=== PATIENT | female | born 1930 | race Caucasian/White ===

== ENCOUNTER 2016-09-04 05:34 | Inpatient (IN) | payer MEDICARE ==
[2016-09-04] MEDS ORDERED: Sodium Chloride 0.9% 1000 ML 1,000 ML IV STA ×2 (05:57→05:58)
[2016-09-04] MEDS ORDERED: ROCEPHIN 1 Gm-D5w 50 ml Bag** 1 G/50 ML IVPB IV STA (05:57)
--- NOTE | 2016-09-04 06:06 | ERPHSYRPT ---
- History of Present Illness Time Seen by Provider: 09/04/16 05:59 Source: patient, other (N.N.) Exam Limitations: clinical condition Physician History: THIS AM PT WAS FOUND TO BE HYPOTENSIVE AND HAVE A 101.5 DEGREE FEVER. PT DENIES CHEST PAIN, ABDOMINAL PAIN, SORE THROAT. Allergies/Adverse Reactions: No Known Drug Allergies Allergy (Unverified 05/11/16 11:49) Hx Tetanus, Diphtheria Vaccination/Date Given: No Hx Influenza Vaccination/Date Given: No Hx Pneumococcal Vaccination/Date Given: No - Review of Systems Constitutional: Fever, Other (HYPOTENSIVE) Cardiac: No Chest Pain Abdominal/Gastrointestinal: No Abdominal Pain Neurological: No Headache All Other Systems: Reviewed and Negative - Past Medical History Pertinent Past Medical History: Yes Neurological History: Stroke ENT History: Cataracts Cardiac History: No Pertinent History Respiratory History: No Pertinent History Endocrine Medical History: No Pertinent History Musculoskeletal History: No Pertinent History GI Medical History: No Pertinent History History: No Pertinent History Psycho-Social History: No Pertinent History Female Reproductive Disorders: No Pertinent History - Past Surgical History Past Surgical History: Yes Gastrointestinal: No Pertinent History Female Surgical History: Hysterectomy Other Surgical History: cataract removal - Social History Smoking Status: Former smoker Exposure to second hand smoke: No Drug Use: none Patient Lives Alone: Yes - Nursing Vital Signs Nursing Vital Signs: Initial Vital Signs Temperature 98.9 F Temperature Source Rectal Pulse Rate 88 Respiratory Rate 16 Blood Pressure [Left Arm] 109/70 Pain Intensity 0 - Physical Exam General Appearance: alert Eye Exam: PERRL/EOMI Ears, Nose, Throat Exam: TMs normal, dry mucous membranes Neck Exam: normal inspection Respiratory Exam: lungs clear Cardiovascular Exam: normal heart sounds Gastrointestinal/Abdomen Exam: soft, normal bowel sounds, No tenderness Back Exam: normal inspection Extremity Exam: other (RIGHT SIDED PARALYSIS(ONGOING).) Neurologic Exam: alert Skin Exam: warm, dry SpO2 Interpretation: normal SpO2: 95 Oxygen Delivery: Nasal Cannula (4L) - Course Nursing assessment & vital signs reviewed: Yes EKG Interpreted by Me: RATE (80), Sinus Rhythm, NORMAL AXIS, Other (UNIFOCAL PVC 'S) - Radiology Exams Chest X-ray Interpretation: Interpreted by me, No Pneumonia Ordered Tests: Active Orders 24 hr Category Date Time Status Office Support STAT Care 09/04/16 05:55 Active Catheter-[place] STAT Care 09/04/16 05:55 Active EKG-ER Only STAT Care 09/04/16 05:58 Active Oxygen-ED Only NASAL CANNULA 2 lpm Care 09/04/16 06:29 Active Pulse Oximetry (ED) STAT Care 09/04/16 05:55 Active Saline Lock STAT Care 09/04/16 05:55 Active CHEST 1 VIEW (PORTABLE) Stat Exams 09/04/16 05:56 Completed AMYLASE Stat Lab 09/04/16 05:40 Completed BLOOD CULTURE Stat Lab 09/04/16 06:10 Received CBC W DIFF Stat Lab 09/04/16 05:40 Completed CMP Stat Lab 09/04/16 05:40 Completed CULTURE,URINE Stat Lab 09/04/16 06:00 Received LIPASE Stat Lab 09/04/16 05:40 Completed Lactic Acid Stat Lab 09/04/16 05:55 Completed PROTIME WITH INR Stat Lab 09/04/16 05:40 Completed PTT Stat Lab 09/04/16 05:40 Completed TROPONIN Stat Lab 09/04/16 05:40 Completed UA W/ MICROSCOPIC Stat Lab 09/04/16 05:55 Completed Medication Summary Generic Name Dose Route Start Last Admin Trade Name Freq PRN Reason Stop Dose Admin Sodium Chloride 1,000 mls @ 100 mls/hr 09/04/16 07:15 Sodium Chloride 0.9% 1000 Ml IV 10/04/16 07:14 .Q10H [place] Discontinued Medications Generic Name Dose Route Start Last Admin Trade Name Freq PRN Reason Stop Dose Admin Ceftriaxone Sodium/Dextrose 1 g in 50 mls @ 100 mls/hr 09/04/16 05:57 06:20 Rocephin 1 Gm-D5w 50 Ml Bag IV 09/04/16 06:26 100 mls/hr STAT STA Administration Sodium Chloride 1,000 mls @ 999 mls/hr 09/04/16 05:57 09/04/16 06:20 Sodium Chloride 0.9% 1000 Ml IV 09/04/16 06:57 999 mls/hr .Q1H1M STA Administration Sodium Chloride 1,000 mls @ 999 mls/hr 09/04/16 05:58 09/04/16 07:13 Sodium Chloride 0.9% 1000 Ml IV 09/04/16 06:58 Not Given .Q1H1M STA Sodium Chloride Confirm 09/04/16 06:17 Sodium Chloride 0.9% 1000 Ml Administered 09/04/16 06:18 Dose 1,000 mls @ ud .ROUTE .STK-MED ONE Ceftriaxone Sodium/Dextrose Confirm 09/04/16 06:17 Rocephin 1 Gm-D5w 50 Ml Bag Administered 09/04/16 06:18 Dose 1 g in 50 mls @ ud IV .STK-MED ONE Ondansetron HCl 4 mg 09/04/16 06:25 09/04/16 06:26 Zofran 4 Mg/2 Ml Vial IV 09/04/16 06:26 4 mg STAT ONE Administration Ondansetron HCl Confirm 09/04/16 06:25 Zofran 4 Mg/2 Ml Vial Administered 09/04/16 06:26 Dose 4 mg .ROUTE .STK-MED ONE Lab/Rad Data: Laboratory Result Diagrams 09/04/16 05:40 09/04/16 05:40 Laboratory Results 09/04/16 09/04/16 09/04/16 Range/Units 05:55 05:55 05:40 WBC (4.0-10.5) K/mm3 RBC (4.1-5.4) M/mm3 Hgb (12.0-16.0) gm/dl Hct (35-47) % MCV (78-100) fl MCH (26-32) pg MCHC (32-36) g/dl RDW (11.5-14.0) % Plt Count (150-450) K/mm3 MPV (6-9.5) fl Gran % (36.0-66.0) % Lymphocytes % (24.0-44.0) % Monocytes % (0.0-12.0) % Eosinophils % (0.00-5.0) % Basophils % (0.0-0.4) % Basophils # (0-0.4) INR (0.8-3.0) APTT (25.3-37.0) SECONDS Sodium (136-145) mEq/L Potassium (3.5-5.1) mEq/L Chloride (98-107) mEq/L Carbon Dioxide (21-32) mEq/L Anion Gap (5-15) MEQ/L BUN (9-20) mg/dL Creatinine (0.55-1.30) mg/dl Estimated GFR ML/MIN Glucose (70-110) MG/DL Lactic Acid 1.4 (0.4-2.0) Calcium (8.5-10.1) mg/dL Total Bilirubin (0.2-1.0) mg/dL AST (15-37) U/L ALT (12-78) U/L Alkaline Phosphatase (46-116) U/L Troponin I 0.673 H* (0.000-0.056) ng/ml Serum Total Protein (6.4-8.2) gm/dL Albumin (3.4-5.0) g/dL Amylase 69 (25-115) U/L Lipase 74 (73-393) U/L Ur Collection Type CATH Urine Color YELLOW (YELLOW) Urine Appearance CLOUDY (CLEAR) Urine pH 5.0 (5-6) Ur Specific [place] 1.010 (1.005-1.025) Urine Protein 30 (Negative) Urine Glucose (UA) NEGATIVE (NEGATIVE) mg/dL Urine Ketones NEGATIVE (NEGATIVE) Urine Nitrite NEGATIVE (NEGATIVE) Urine Bilirubin NEGATIVE (NEGATIVE) Urine Urobilinogen 0.2 (0-1) mg/dL Urine WBC (Auto) LARGE (NEGATIVE) Urine RBC (Auto) MODERATE (0-5) Steve/ul Urine Microscopic RBC 15-25 (0-2) /HPF Urine Microscopic WBC >100 (0-5) /HPF Ur Epithelial Cells FEW (FEW) /HPF Urine Bacteria PACKED (NEGATIVE) /HPF Specimen Received 09/04/2016 0610 09/04/16 09/04/16 09/04/16 Range/Units 05:40 05:40 05:40 WBC 12.4 H (4.0-10.5) K/mm3 RBC 4.12 (4.1-5.4) M/mm3 Hgb 12.2 (12.0-16.0) gm/dl Hct 37.5 (35-47) % MCV 91.0 (78-100) fl MCH 29.6 (26-32) pg MCHC 32.5 (32-36) g/dl RDW 13.6 (11.5-14.0) % Plt Count 182 (150-450) K/mm3 MPV 12.1 H (6-9.5) fl Gran % 80.0 H (36.0-66.0) % Lymphocytes % 13.7 L (24.0-44.0) % Monocytes % 6.1 (0.0-12.0) % Eosinophils % 0.1 (0.00-5.0) % Basophils % 0.1 (0.0-0.4) % Basophils # 0.01 (0-0.4) INR 1.25 (0.8-3.0) APTT 34.2 (25.3-37.0) SECONDS Sodium 138 (136-145) mEq/L Potassium 4.1 (3.5-5.1) mEq/L Chloride 101 (98-107) mEq/L Carbon Dioxide 29.8 (21-32) mEq/L Anion Gap 10.9 (5-15) MEQ/L BUN 19 (9-20) mg/dL Creatinine 1.00 (0.55-1.30) mg/dl Estimated GFR 56 ML/MIN Glucose 113 H (70-110) MG/DL Lactic Acid (0.4-2.0) Calcium 8.5 (8.5-10.1) mg/dL Total Bilirubin 0.60 (0.2-1.0) mg/dL AST 29 (15-37) U/L ALT 22 (12-78) U/L Alkaline Phosphatase 73 (46-116) U/L Troponin I (0.000-0.056) ng/ml Serum Total Protein 6.9 (6.4-8.2) gm/dL Albumin 3.0 L (3.4-5.0) g/dL Amylase (25-115) U/L Lipase (73-393) U/L Ur Collection Type Urine Color (YELLOW) Urine Appearance (CLEAR) Urine pH (5-6) Ur Specific [place] (1.005-1.025) Urine Protein (Negative) Urine Glucose (UA) (NEGATIVE) mg/dL Urine Ketones (NEGATIVE) Urine Nitrite (NEGATIVE) Urine Bilirubin (NEGATIVE) Urine Urobilinogen (0-1) mg/dL Urine WBC (Auto) (NEGATIVE) Urine RBC (Auto) (0-5) Steve/ul Urine Microscopic RBC (0-2) /HPF Urine Microscopic WBC (0-5) /HPF Ur Epithelial Cells (FEW) /HPF Urine Bacteria (NEGATIVE) /HPF Specimen Received - Progress Discussed with : Anna (ADMIT - [id number]) - Departure Time of Disposition: 07:17 Departure Disposition: Observation Clinical Impression: UTI, ELEVATED TROPONIN, DEHYDRATION, HX CVA WITH RIGHT SIDED PARALYSIS Condition: Stable Critical Care Time: No Referrals: SOPHIE ARRIAGA MD [Primary Care Provider] -
[2016-09-04 06:08] LABS: INR 1.25 (0.8-3.0); PROTIME 14.1 SECONDS (9.95-12.35)
[2016-09-04 06:09] LABS: BASOPHIL % 0.1 % (0.0-0.4); Eosinophil % 0.1 % (0.00-5.0); Lymphocytes % 13.7 % (24.0-44.0); Mean Corpuscular Hemoglobin 29.6 pg (26-32); Mean Platelet Volume 12.1 fl (6-9.5); Monocytes % 6.1 % (0.0-12.0); Platelet Count 182 K/mm3 (150-450); Red Blood Count 4.12 M/mm3 (4.1-5.4); Red Cell Distribution Width 13.6 % (11.5-14.0); White Blood Count 12.4 K/mm3 (4.0-10.5)
[2016-09-04 06:11] LABS: PTT 34.2 SECONDS (25.3-37.0)
[2016-09-04 06:15] LABS: ANION GAP 10.9 MEQ/L (5-15); BILIRUBIN,TOTAL 0.6 mg/dL (0.2-1.0); Carbon Dioxide 29.8 mEq/L (21-32); Potassium 4.1 mEq/L (3.5-5.1); Total Protein 6.9 gm/dL (6.4-8.2)
[2016-09-04] MEDS ORDERED: ROCEPHIN 1 Gm-D5w 50 ml Bag** 1 G/50 ML IVPB IV ONE (06:17)
[2016-09-04] MEDS ORDERED: Sodium Chloride 0.9% 1000 ML 1,000 ML ONE (06:17)
[2016-09-04] MEDS ORDERED: Zofran 4 MG/2 ML VIAL ONE (06:25)
[2016-09-04] MEDS ORDERED: Zofran 4 MG/2 ML VIAL IV ONE (06:25)
[2016-09-04 06:26] LABS: Collection Type CATH
[2016-09-04 06:27] LABS: COMPLETE URINE MICROSCOPIC? YES
[2016-09-04 06:28] LABS: Bacteria PACKED /HPF (NEGATIVE); Epithelial Cells FEW /HPF (FEW); WBC >100 /HPF (0-5)
[2016-09-04 06:32] LABS: TROPONIN 0.673 ng/ml (0.000-0.056)
[2016-09-04] MEDS ORDERED: Sodium Chloride 0.9% 1000 ML 1,000 ML IV SCH (07:15)
--- NOTE | 2016-09-04 07:15 | XRAY ---
Indication: Possible sepsis. Comparison: May 11, 2016. Portable chest remains clear. Heart and mediastinal structures stable and within normal limits. Bony thorax intact again with mild osteopenia, degenerative changes, and mild scoliosis. Impression: Stable nonacute chest with chronic features.
[2016-09-04] MEDS ORDERED: Zofran 4 MG/2 ML VIAL IV PRN (07:52)
[2016-09-04] MEDS ORDERED: DILAUDID 2 MG INJECTION IV PRN (07:52)
[2016-09-04] MEDS ORDERED: TYLENOL 325 MG PO PRN ×2 (07:52→09:13)
--- NOTE | 2016-09-04 08:54 | PCM.HP ---
History of Present Illness - Chief Complaint Chief Complaint: UTI with Sepsis Date: 09/04/16 History of Present Illness: is a 86 year old female. she has been feeling weak and tired for the last 2 days started having fever yesterday and then abdominal and flank pain. limited history somewhat by her aphasia but she can answer yes no questions accurately. She continues to not have chest pain and not feel short of breath. no vomiting. - Review of Systems Constitutional: Fever, Chills, Fatigue Eyes: No Symptoms Ears, Nose, & Throat: No Symptoms Respiratory: No Cough, No Short Of Breath Cardiac: No Chest Pain, No Edema, No Syncope Abdominal/Gastrointestinal: Nausea, No Abdominal Pain, No Vomiting, No Diarrhea Genitourinary Symptoms: No Dysuria Musculoskeletal: Back Pain, No Neck Pain Skin: No Rash Neurological: No Dizziness, No Focal Weakness, No Sensory Changes Psychological: No Symptoms Endocrine: No Symptoms Hematologic/Lymphatic: No Symptoms Immunological/Allergic: No Symptoms Medications & Allergies Home Medications: Home Medication List Acetaminophen 325 mg [Tylenol 325 mg] 650 mg PO Q4H PRN 09/04/16 [History Confirmed 09/04/16] Aspirin 81 mg PO DAILY 09/04/16 [History Confirmed 09/04/16] Hydrocodone Bit/Acetaminophen [[place] 5-325 Tablet] 1 each PO Q4H PRN 09/04/16 [ History Confirmed 09/04/16] Magnesium Hydroxide 30 ml [Milk of Magnesia 30 ml] 30 ml PO DAILY PRN 02/10 [History Confirmed 09/04/16] Metformin HCl 500 mg [Glucophage 500 MG] 500 mg PO DAILY 09/04/16 [ History Confirmed 09/04/16] Potassium Chloride 10 Meq Tab* [Klor Con 10 MEQ] 10 meq PO DAILY 09/04/16 [ History Confirmed 09/04/16] Allergies/Adverse Reactions: Allergies Allergy/AdvReac Type Severity Reaction Status Date / Time No Known Drug Allergies Allergy Unverified 05/11/16 11:49 - Past Medical History Past Medical History: Yes Neurological History: Stroke ENT History: Cataracts Cardiac History: No Pertinent History Respiratory History: No Pertinent History Endocrine Medical History: No Pertinent History Musculoskelatal History: No Pertinent History GI Medical History: No Pertinent History History: No Pertinent History Pyscho-Social History: No Pertinent History Reproductive Disorders: No Pertinent History Comment: 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 - Female History Hx Last Menstrual Period: na Are you now?: No - Past Surgical History Past Surgical History: Yes GI Surgical History: No Pertinent History Female Surgical History: Hysterectomy Other Surgical History: cataract removal - Social History Smoking Status: Former smoker Exposure to second hand smoke: No Alcohol: None Drug Use: none - Physical Exam Vital Signs: Vital Signs - 24 hr Temp Pulse Resp BP Pulse Ox 09/04/16 08:00 98 F 89 18 104/51 90 L 09/04/16 07:52 98 F 89 18 104/51 90 L 09/04/16 07:17 95 09/04/16 06:53 88 16 109/70 100 09/04/16 06:34 68 16 88/58 99 09/04/16 06:26 98 09/04/16 06:14 77 22 86/41 95 09/04/16 05:55 98.9 F 70 16 90/50 Oxygen-Last 24 hours O2 Percentage 1 Liter = 24% O2 Percentage 1 Liter = 24% O2 Percentage 2 Liters = 28% O2 Percentage 2 Liters = 28% O2 Percentage 2 Liters = 28% O2 Percentage 4 Liters = 36% General Appearance: no apparent distress, alert Neurologic Exam: alert, oriented x 3, cooperative, normal mood/affect, nml cerebellar function, motor deficits (right hemiparesis and chronic expressive aphasia) Eye Exam: PERRL/EOMI, eyes nml inspection Ears, Nose, Throat Exam: normal ENT inspection, TMs normal, pharynx normal, moist mucous membranes Neck Exam: normal inspection, non-tender, supple, full range of motion Respiratory Exam: normal breath sounds, lungs clear, No respiratory distress Cardiovascular Exam: regular rate/rhythm, normal heart sounds, normal peripheral pulses Gastrointestinal/Abdomen Exam: soft, normal bowel sounds, tenderness (suprapubic ), No mass Back Exam: normal inspection, normal range of motion, CVA tenderness (left), No vertebral tenderness Extremity Exam: normal inspection, normal range of motion, pelvis stable Skin Exam: normal color, warm, dry, No rash Lymphatic Exam: No adenopathy Assessment/Plan (1) Pyelonephritis, acute Current Visit: Yes Status: Acute Assessment & Plan: on ceftriaxone monitor cultures dvt ppx with lovenox Code(s): N10 - ACUTE PYELONEPHRITIS (2) Non-ST elevation myocardial infarction (NSTEMI), type 2 Current Visit: Yes Status: Acute Assessment & Plan: suspect demand supply mismatch with the profound hypotension at [facility] with bp systolic in upper 60's prior to transfer. no chest pain now and ekg unremarkable continue telemetry aspirin and trend troponin. Code(s): I21.4 - NON-ST ELEVATION (NSTEMI) MYOCARDIAL INFARCTION (3) Acute hypoxemic respiratory failure Current Visit: Yes Status: Acute Assessment & Plan: improving with supplementation suspect secondary to sepsis from UTI continue supportive measures Code(s): J96.01 - ACUTE RESPIRATORY FAILURE WITH HYPOXIA (4) Sepsis Current Visit: Yes Status: Acute (5) Right hemiparesis Current Visit: Yes Status: Chronic Code(s): G81.91 - HEMIPLEGIA, UNSPECIFIED AFFECTING RIGHT DOMINANT SIDE (6) Aphasia Current Visit: Yes Status: Chronic Assessment & Plan: expressive Code(s): R47.01 - APHASIA
[2016-09-04] MEDS ORDERED: BABY ASPIRIN 81 MG CHEW PO ONE (09:00)
[2016-09-04] MEDS ORDERED: LIPITOR 40MG PO STA (09:01)
[2016-09-04] MEDS ORDERED: NORCO 5/325 MG PO PRN (09:13)
[2016-09-04] MEDS ORDERED: MILK OF MAGNESIA 30 ML PO PRN (09:13)
[2016-09-04] MEDS: Klor Con 10 MEQ PO SCH (09:50)
[2016-09-04] MEDS: ENOXAPARIN SODIUM SQ SCH (09:51)
[2016-09-04] MEDS ORDERED: NON-FORMULARY ITEM (Aspirin [Aspirin] 81 MG) PO SCH (10:00)
[2016-09-04] MEDS ORDERED: Sodium Chloride 0.9% 500 ML 500 ML IV ONE (11:32)
[2016-09-04] MEDS: Sodium Chloride 0.9% 1000 ML 1,000 ML IV SCH (18:55)
[2016-09-05] MEDS: Sodium Chloride 0.9% 1000 ML 1,000 ML IV SCH ×2 (05:14→15:21)
[2016-09-05 06:09] LABS: BASOPHIL % 0.1 % (0.0-0.4); Eosinophil % 0.8 % (0.00-5.0); Granulocytes % 61.7 % (36.0-66.0); Lymphocytes % 24.8 % (24.0-44.0); Mean Cell Volume 92.3 fl (78-100); Mean Corpuscular Hemoglobin 29.2 pg (26-32); Mean Platelet Volume 12.1 fl (6-9.5); Monocytes % 12.6 % (0.0-12.0); Platelet Count 153 K/mm3 (150-450); Red Blood Count 3.66 M/mm3 (4.1-5.4); Red Cell Distribution Width 13.5 % (11.5-14.0); White Blood Count 7.5 K/mm3 (4.0-10.5)
[2016-09-05 06:37] LABS: ALBUMIN 2.3 g/dL (3.4-5.0); ALKALINE PHOSPHATASE 57 U/L (46-116); ANION GAP 9.9 MEQ/L (5-15); BLOOD UREA NITROGEN 9 mg/dL (9-20); CHLORIDE 109 mEq/L (98-107); Carbon Dioxide 27.3 mEq/L (21-32); Glucose 112 MG/DL (70-110); Potassium 3.6 mEq/L (3.5-5.1); SGOT/AST 21 U/L (15-37); SGPT/ALT 20 U/L (12-78); SODIUM 143 mEq/L (136-145); Total Protein 6.3 gm/dL (6.4-8.2)
--- NOTE | 2016-09-05 08:04 | PCM.NOTE ---
Date and Time: 09/05/16 0804 Subjective Assessment: she is sitll having some suprapubic tendenress she is eating well now had fever last night and low bp requiring repeat bolus no vomiting no diarrhea denies additional complaints at this time. Objective Exam General Appearance: no apparent distress Neurologic Exam: alert, oriented x 3, cooperative, motor deficits (right hemiparesis), aphasia (expressive) Skin Exam: warm, dry, No rash Ears, Nose, Throat Exam: moist mucous membranes Neck Exam: non-tender, supple Respiratory Exam: normal breath sounds, lungs clear Cardiovascular Exam: regular rate/rhythm, No murmur Gastrointestinal/Abdomen Exam: soft, normal bowel sounds, tenderness (suprapubic ), No ecchymosis, No rebound Extremity Exam: normal inspection, No pedal edema OBJECTIVE DATA Vital Signs: Vital Signs - 24 hr Temp Pulse Resp BP Pulse Ox 09/05/16 07:20 98 H 16 93 L 09/05/16 07:11 99.1 F 92 H 18 118/60 94 L 09/05/16 03:52 98.9 F 95 H 18 117/71 94 L 09/05/16 00:05 98.4 F 93 H 16 95/55 93 L 09/04/16 20:00 102.5 F 81 18 132/58 92 L 09/04/16 19:01 99.4 F 96 09/04/16 16:00 98.2 F 66 18 126/57 92 L 09/04/16 15:00 112/52 09/04/16 11:43 98.8 F 72 18 86/47 94 L 09/04/16 11:15 75 18 98 09/04/16 10:00 90 L Oxygen-Last 24 hours O2 Percentage 2 Liters = 28% O2 Percentage 2 Liters = 28% O2 Percentage 2 Liters = 28% O2 Percentage 2 Liters = 28% O2 Percentage 1 Liter = 24% O2 Percentage 1 Liter = 24% Pain Assessment - Last Documented Pain Scale Used 0-10 Pain Scale Intake and Output: Intake & Output 09/02/16 09/03/16 09/04/16 09/05/16 11:59 11:59 11:59 11:59 Intake Total 2734 Output Total 3025 Balance -291 Weight 69.672 kg Lab Results: Lab Results-Last 24 Hours 09/04/16 09/05/16 09/05/16 Range/Units 11:03 05:30 05:30 WBC 7.5 (4.0-10.5) K/mm3 RBC 3.66 L (4.1-5.4) M/mm3 Hgb 10.7 L (12.0-16.0) gm/dl Hct 33.8 L (35-47) % MCV 92.3 (78-100) fl MCH 29.2 (26-32) pg MCHC 31.7 L (32-36) g/dl RDW 13.5 (11.5-14.0) % Plt Count 153 (150-450) K/mm3 MPV 12.1 H (6-9.5) fl Gran % 61.7 (36.0-66.0) % Lymphocytes % 24.8 (24.0-44.0) % Monocytes % 12.6 H (0.0-12.0) % Eosinophils % 0.8 (0.00-5.0) % Basophils % 0.1 (0.0-0.4) % Basophils # 0.01 (0-0.4) Sodium 143 (136-145) mEq/L Potassium 3.6 (3.5-5.1) mEq/L Chloride 109 H (98-107) mEq/L Carbon Dioxide 27.3 (21-32) mEq/L Anion Gap 9.9 (5-15) MEQ/L BUN 9 (9-20) mg/dL Creatinine 0.54 L (0.55-1.30) mg/dl Estimated GFR > 60 ML/MIN Glucose 112 H (70-110) MG/DL Calcium 7.8 L (8.5-10.1) mg/dL Total Bilirubin 0.30 (0.2-1.0) mg/dL AST 21 (15-37) U/L ALT 20 (12-78) U/L Alkaline Phosphatase 57 (46-116) U/L Troponin I 0.408 H* (0.000-0.056) ng/ml Serum Total Protein 6.3 L (6.4-8.2) gm/dL Albumin 2.3 L (3.4-5.0) g/dL Assessment/Plan (1) Pyelonephritis, acute Current Visit: Yes Status: Acute Assessment & Plan: continue rocephin cultures pending Code(s): N10 - ACUTE PYELONEPHRITIS (2) Non-ST elevation myocardial infarction (NSTEMI), type 2 Current Visit: Yes Status: Acute Assessment & Plan: suspect type 2 no further chest pain troponin trending down continue statin aspirin hold beta blockers and anton with the low bp and sepsis Code(s): I21.4 - NON-ST ELEVATION (NSTEMI) MYOCARDIAL INFARCTION (3) Acute hypoxemic respiratory failure Current Visit: Yes Status: Acute Code(s): J96.01 - ACUTE RESPIRATORY FAILURE WITH HYPOXIA (4) Sepsis Current Visit: Yes Status: Acute (5) Right hemiparesis Current Visit: Yes Status: Chronic Code(s): G81.91 - HEMIPLEGIA, UNSPECIFIED AFFECTING RIGHT DOMINANT SIDE (6) Aphasia Current Visit: Yes Status: Chronic Code(s): R47.01 - APHASIA
[2016-09-05] MEDS: ECOTRIN 81 MG PO SCH (09:02)
[2016-09-05] MEDS: ROCEPHIN 1 Gm-D5w 50 ml Bag** 1 G/50 ML IVPB IV SCH (09:02)
[2016-09-05] MEDS: ENOXAPARIN SODIUM SQ SCH (09:02)
[2016-09-05] MEDS: Klor Con 10 MEQ PO SCH (09:02)
[2016-09-06] MEDS: Sodium Chloride 0.9% 1000 ML 1,000 ML IV SCH (01:27)
[2016-09-06] MEDS ORDERED: Sodium Chloride 0.9% 10 ML FLUSH Syringe IV PRN (07:37)
[2016-09-06] MEDS: Klor Con 10 MEQ PO SCH (08:55)
[2016-09-06] MEDS: ECOTRIN 81 MG PO SCH (08:55)
[2016-09-06] MEDS: ROCEPHIN 1 Gm-D5w 50 ml Bag** 1 G/50 ML IVPB IV SCH (08:56)
[2016-09-06] MEDS: ENOXAPARIN SODIUM SQ SCH (08:56)
[2016-09-06] MEDS ORDERED: Sodium Chloride 0.9% 10 ML FLUSH Syringe IV SCH (14:00)
--- NOTE | 2016-09-06 14:08 | PCM.DCORD ---
- Discharge Discharge Date: 09/06/16 Disposition: DC TO [facility] Condition: Stable Prescriptions: New Cefuroxime Axetil [Cefuroxime] 250 mg PO BID #10 tablet Continue Metformin HCl 500 mg [Glucophage 500 MG] 500 mg PO DAILY Aspirin 81 mg PO DAILY Potassium Chloride 10 Meq Tab* [Klor Con 10 MEQ] 10 meq PO DAILY Hydrocodone Bit/Acetaminophen [[place] 5-325 Tablet] 1 each PO Q4H PRN PRN Reason: Pain Magnesium Hydroxide 30 ml [Milk of Magnesia 30 ml] 30 ml PO DAILY PRN PRN Reason: Constipation Acetaminophen 325 mg [Tylenol 325 mg] 650 mg PO Q4H PRN PRN Reason: Mild Pain
--- NOTE | 2016-09-06 14:35 | PCM.DS ---
Discharge Summary Date of Admission: 09/04/16 08:22 Date of Discharge: 09/06/16 Admitting Physician: BREANNE DE LA ROSA Primary Care Provider: SOPHIE ARRIAGA Allergies Allergies No Known Drug Allergies Allergy (Unverified 05/11/16 11:49) Hospital Summary - Hospital Course Hospital Course: Marivel suffers from chronic expressive aphashia and right hemiparesis from a stroke many years ago. Marivel is doing much better this am no pain her abdominal pain has resolved she is eating well and feeling well. No fevers in 24hr. She presented from [facility] with a UTI and sepsis with hypotension responding to fluid bolus but resulting in a type 2 nstemi she denied any chest pain throughout the coarse and there were no ekg changes. Her troponins trended down. She was treated with Rocephin and improved. She was given fluid rehydration and culture results showed E. coli and K. pneumonia and both sensitive to the the ceftriaxone as well as cefuroxime and she is sent back to [facility] on the Cefuroxime to complete 7 day course. - Vitals & Intake/Output Vital Signs: Vital Signs Temperature 98.4 F 09/06/16 11:48 Pulse Rate 98 H 09/06/16 11:48 Respiratory Rate 20 09/06/16 11:48 Blood Pressure 115/56 09/06/16 11:48 O2 Sat by Pulse Oximetry 93 L 09/06/16 11:48 Oxygen-Last Documented O2 Percentage 2 Liters = 28% Intake & Output: Intake & Output 09/04/16 09/05/16 09/06/16 09/07/16 11:59 11:59 11:59 11:59 Intake Total 2734 1919 Output Total 3025 3000 Balance -291 -1081 Weight 69.672 kg 73.845 kg - Lab Result Diagrams: 09/05/16 05:30 09/05/16 05:30 - Procedures and Test Procedures and Tests throughout Hospitalization: Therapy Orders & Screens 09/04/16 08:39 ST Screen per Nursing Assess once Comment: Protocol Order Physician Instructions: Greater than [address] Admission Screening Reason For Exam: Triggered on Admission Diagnosis: UTI with Sepsis CVA/Dyshpagia/Aphasia: Yes Cognitive Deficits: No Dehydration/Nutrition Deficit: No Reflux: No Oral-Motor Difficulties: No Pneumonia: No Custodial Resident: Yes Total Points: 10 Discharge Exam General Appearance: no apparent distress, alert Neurologic Exam: alert, oriented x 3, cooperative, normal mood/affect, nml cerebellar function, motor deficits (right hemiparesis), aphasia (expressive) Skin Exam: normal color, warm, dry Eye Exam: PERRL, EOMI, eyes nml inspection Ears, Nose, Throat Exam: normal ENT inspection, pharynx normal, moist mucous membranes Neck Exam: normal inspection, non-tender, supple, full range of motion Respiratory Exam: normal breath sounds, lungs clear, No respiratory distress Cardiovascular Exam: regular rate/rhythm, normal heart sounds Gastrointestinal/Abdomen Exam: soft, No tenderness, No mass Extremity Exam: normal inspection, normal range of motion Back Exam: normal inspection, No CVA tenderness, No vertebral tenderness Pelvic Exam: deferred Rectal Exam: deferred Final Diagnosis/Problem List - Final Discharge Diagnosis/Problem (1) Pyelonephritis, acute Current Visit: Yes Status: Acute (2) Non-ST elevation myocardial infarction (NSTEMI), type 2 Current Visit: Yes Status: Acute (3) Acute hypoxemic respiratory failure Current Visit: Yes Status: Acute (4) Sepsis Current Visit: Yes Status: Acute (5) Right hemiparesis Current Visit: Yes Status: Chronic (6) Aphasia Current Visit: Yes Status: Chronic - Discharge Disposition: DC TO [facility] Condition: Stable Prescriptions: New Cefuroxime Axetil [Cefuroxime] 250 mg PO BID #10 tablet Continue Metformin HCl 500 mg [Glucophage 500 MG] 500 mg PO DAILY Aspirin 81 mg PO DAILY Potassium Chloride 10 Meq Tab* [Klor Con 10 MEQ] 10 meq PO DAILY Hydrocodone Bit/Acetaminophen [[place] 5-325 Tablet] 1 each PO Q4H PRN PRN Reason: Pain Magnesium Hydroxide 30 ml [Milk of Magnesia 30 ml] 30 ml PO DAILY PRN PRN Reason: Constipation Acetaminophen 325 mg [Tylenol 325 mg] 650 mg PO Q4H PRN PRN Reason: Mild Pain
[2016-09-06 16:34] VITALS: BP 111/58; PULSE 96; O2SAT 91
== END 2016-09-06 16:56 | DRG 689 ==
LOC: ED 05:34 → MED SURG 07:46 → INTOOBSV 07:46 → OBSVTOIN 08:22
PROVIDERS: ADMIT Family Medicine; ATTEND Family Medicine
DX: N10 Acute pyelonephritis (principal); I21.4 Non-ST elevation (NSTEMI) myocardial infarction; J96.01 Acute respiratory failure with hypoxia; A41.9 Sepsis, unspecified organism; G81.91 Hemiplegia, unspecified affecting right dominant side; R47.01 Aphasia
CPT/HCPCS: 36415; 51702; 71010; 80053; 81000; 82150; 83605; 83690; 84484; 85025; 85610; 85730; 87040; 87077; 87086; 87186; 93005; 93041; 94760; 96360; 96361; 96374; 99285; J0696; J1650; J2405; A9270-GY